=== PATIENT | female | born 2005 | race Hispanic/Latino ===

== ENCOUNTER → 2025-02-18 16:44 | Outpatient (REF) | payer OTHER, SELFPAY | LOC: RAD 16:44 | PROVIDERS: ATTENDING PHYSICIAN Nurse Practitioner Primary Care | DX: M54.6 Pain in thoracic spine (principal); M54.50 Low back pain, unspecified | CPT/HCPCS: 72072; 72110 ==

== ENCOUNTER 2025-03-25 13:36 | Emergency (ER) | payer OTHER, SELFPAY ==
[2025-03-25 13:38] VITALS: BP 110/76
--- NOTE | 2025-03-25 14:20 | ED.GENMED ---
History of Present Illness
General
Chief Complaint: Musculo-Skeletal Complaint
Source: patient
Time Seen by Provider: 03/25/25 14:07
History of Present Illness
History of Present Illness:
19-year-old female with no significant past medical history presenting to the emergency department for evaluation after dislocating her right patella yesterday, today subluxed the same patella at least 2 or 3 other times, she does have a history of
similar which required surgery done by Dr. Maxwell at [facility] orth[facility] a few years ago. Patient has no other symptoms but does note soft tissue swelling, pain while ambulating and diminished range of motion secondary to the pain. She
states no direct trauma to the area. No fevers or infectious symptoms.
Past History
Past History
ED Past Medical History: None
ED Past Surgical History: Orthopedic
Social History
Tobacco: Non-smoker
Alcohol: None
Drug: None
Personal: Single
Living: with family
Employment: Employed
Review of Systems
Review of Systems
All Other Systems: ROS reviewed and negative except as documented in HPI and ROS
Phy Exam
Physical Exam
Physical Exam:
GENERAL: Alert , in no apparent distress
EYE: conjunctiva clear
Head: Normocephalic atraumatic
NECK: Supple,
ENT: mmm.
LUNGS: no acute respiratory distress
NEUROLOGICAL: Alert and oriented
SKIN: Warm and dry, skin intact.
MUSCULOSKELETAL: Right knee: Mild to moderate soft tissue swelling: Tenderness diffusely on the anterior surface of the diffuse knee, patient allows for full active and passive range of motion although has while doing so, The patellar tendon and
quadriceps tendon are intact. Extremity is otherwise warm well-perfused
PSYCH: Normal and appropriate interaction.
Scores
Heart Failure Risk
Heart Failure Risk Score: Not Applicable
Heart Score for Chest Pain Patients
STEMI patient?: Not applicable
Withdrawal Assessment of Alcohol
Withdrawal Assessment Completed?: Not applicable
Course
Orders/Labs/Results
Orders:
Orders
03/25/25 13:37
Knee, Right 4 or More Views [CR Knee- Right 4 Or More View*] Urgent
Comment:
Reason For Exam: pain
03/25/25 14:23
Knee Immobilizer Right-Treatme ONCE
Vital Signs
Initial and Last Documented VS:
Initial Vital Signs
Temp Pulse Resp BP Pulse Ox
98.2 F 109 16 110/76 98
03/25/25 13:38 03/25/25 13:38 03/25/25 13:38 03/25/25 13:38 03/25/25 13:38
Last Documented Vital Signs
Temp Pulse Resp BP Pulse Ox
98.2 F 109 16 110/76 98
03/25/25 13:38 03/25/25 13:38 03/25/25 13:38 03/25/25 13:38 03/25/25 14:21
MDM/Problems Addressed
Differential Diagnosis Includes:
- Right patellar dislocation
- Right patellar subluxation
- Patella fracture/knee fracture
- Ligamentous injury
- Meniscal injury
- Tendon rupture/tendinitis
MDM/Problems Addressed:
19-year-old female presenting to the emergency department for evaluation following suspected right knee dislocation/subluxation, history of similar requiring surgery a few years ago. Patient allows for range of motion, no fevers, no overlying signs
of infection. X-ray shows no fracture. Suspect recurring subluxation. Will treat with knee immobilizer and crutches, partial weightbearing. Encouraged follow-up with orthopedist again. Patient is otherwise stable for discharge from the
emergency room
*Radiology
Radiology exam reviewed: preliminary read by ED provider (No dislocation or fracture)
*Pulse Oximetry
SaO2: 98
Oxygen Mode of Delivery: Room air
Patient hypoxic: no
*Critical Care Note
Total Time (30-74mins, 75-104mins- exclusive of procedures): Not Applicable
ED Attending Note
-
Portions of this chart may have been created with voice recognition software.� Occasional wrong word or��sound alike� substitutions may have occurred due to the inherent limitations of voice recognition software.
Discharge Plan
Departure
Patient Disposition: Home (Routine Discharge)
Date of Disposition: 03/25/25
Time of Disposition: 14:20
Patient with high blood pressure during this ER visit?: No
Discharge Problem:
Subluxation of right patella
Instructions: Dislocated Kneecap (DC)
Prescriptions:
No Action
norethindrone-ethin estradiol [Alyacen ()] 1 EACH tablet
1 ea PO DAILY
cranberry extract-vitamin C [Azo Cranberry Plus Vit C] 1 EACH capsule
2 ea PO DAILY
Motrin:
300 mg PO Q4H PRN (Reason: pain)
Referrals:
Valeria Patel CRNP [Family Provider, Internal Medicine]
Serena Maxwell I., DO [Active, Orthopedics]
Stand Alone Forms: Return to Work
Interventions
Interventions:
*Risk Screen - Suicide Last Done: 03/25/25 13:38
*Neglect/Abuse Screening Last Done: 03/25/25 13:38
*Nursing Disposition Last Done: 03/25/25 14:40
ED-Musculoskeletal Assessment Last Done: 03/25/25 14:37
Discharge Date and Time
Discharge Date/Time: 03/25/25 14:40
Print Language: CROATIAN
== END 2025-03-25 14:40 | disposition home or self-care (01) ==
LOC: EMR 13:36
PROVIDERS: EMERGENCY PHYSICIAN Student in an Organized Health Care Education/Training Program; FAMILY PHYSICIAN Nurse Practitioner Primary Care
DX: S83.001A Unspecified subluxation of right patella, initial encounter (principal); M25.461 Effusion, right knee; X58.XXXA Exposure to other specified factors, initial encounter; Z91.048 Other nonmedicinal substance allergy status
CPT/HCPCS: 99283; 29505; 73564

== ENCOUNTER 2025-05-19 10:09 | Outpatient (RCR) | payer OTHER, SELFPAY | END 2025-05-19 23:59 | disposition home or self-care (01) | LOC: RPT 10:09 | PROVIDERS: ATTENDING PHYSICIAN Orthopaedic Surgery; FAMILY PHYSICIAN Nurse Practitioner Primary Care | DX: M25.361 Other instability, right knee (principal); M22.8X1 Other disorders of patella, right knee; M22.41 Chondromalacia patellae, right knee; R20.0 Anesthesia of skin; R20.2 Paresthesia of skin; R26.89 Other abnormalities of gait and mobility; M25.561 Pain in right knee; Z73.6 Limitation of activities due to disability | CPT/HCPCS: 97110; 97162 ==

== ENCOUNTER 2025-06-16 10:07 | Outpatient (RCR) | payer OTHER, SELFPAY | END 2025-06-16 23:59 | disposition home or self-care (01) | LOC: RPT 10:07 | PROVIDERS: ATTENDING PHYSICIAN Orthopaedic Surgery; FAMILY PHYSICIAN Nurse Practitioner Primary Care | DX: M25.361 Other instability, right knee (principal); M22.8X1 Other disorders of patella, right knee; M22.41 Chondromalacia patellae, right knee; R20.0 Anesthesia of skin; R20.2 Paresthesia of skin; R26.89 Other abnormalities of gait and mobility; M25.561 Pain in right knee; Z73.6 Limitation of activities due to disability | CPT/HCPCS: 97110 ==

== ENCOUNTER 2025-07-01 09:07 | Outpatient (RCR) | payer OTHER, SELFPAY | END 2025-07-01 11:01 | disposition home or self-care (01) | LOC: RPT 09:07 | PROVIDERS: ATTENDING PHYSICIAN Orthopaedic Surgery; FAMILY PHYSICIAN Nurse Practitioner Primary Care | DX: M25.361 Other instability, right knee (principal); M22.8X1 Other disorders of patella, right knee; M22.41 Chondromalacia patellae, right knee; R20.0 Anesthesia of skin; R20.2 Paresthesia of skin; R26.89 Other abnormalities of gait and mobility; M25.561 Pain in right knee; Z73.6 Limitation of activities due to disability | CPT/HCPCS: 97010; 97110 ==